=== PATIENT | male | born 1975 | race Caucasian/White ===

== ENCOUNTER 2017-10-08 18:18 | Emergency (ER) | payer SELFPAY ==
[~2017-10-08] VITALS: Ht 167.6 cm; Wt 104.5 kg
[2017-10-08 18:23] VITALS: BP 140/77
--- NOTE | 2017-10-08 18:23 | NUR ---
Patient ambulated to bed 9 with family. RN evaluating patient at bedside.
--- NOTE | 2017-10-08 18:34 | NUR ---
REPORT GIVEN TO JUSTO CHEN
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
--- NOTE | 2017-10-08 19:05 | NUR ---
REPORT GIVEN TO DARRYL KEMP
[2017-10-08] MEDS ORDERED: KETOROLAC 60 MG/2 ML VIAL IM ONE (19:20)
--- NOTE | 2017-10-08 19:20 | NUR ---
is with pt
--- NOTE | 2017-10-08 19:30 | NUR ---
PATIENT PRESENTS TO ED with c/o of pain in the right wrist. pt has some slight swelling and pink around the skin. pt is a/o x4. Pt is able to move the wrist slighty. pt pain level is 10/10. . PT STATES . DENIES N/V/D; SKIN IS PINK/WARM/DRY;EVEN AND STEADY GAIT; LUNGS CLEAR BL; HR EVEN AND REGULAR; PT DENIES ANY FEVER, CP, SOB, OR COUGH AT THIS TIME; VSS; PATIENT POSITIONED FOR COMFORT; HOB ELEVATED; BEDRAILS UP X2; BED DOWN. ER MD MADE AWARE OF PT STATUS.
[2017-10-08 20:30] VITALS: BP 140/77
== END 2017-10-08 20:30 | disposition home or self-care (01) ==
LOC: MED 18:18
DX: S60.211A Contusion of right wrist, initial encounter (principal); E78.00 Pure hypercholesterolemia, unspecified; F17.210 Nicotine dependence, cigarettes, uncomplicated; W22.03XA Walked into furniture, initial encounter; Y93.89 Activity, other specified; Y92.89 Other specified places as the place of occurrence of the external cause; Y99.8 Other external cause status
CPT/HCPCS: 73110; 96372; 99284; J1885; Q0092